=== PATIENT | female | born 1990 | race Caucasian/White ===

== ENCOUNTER 2020-02-26 15:37 | Emergency (ER) | payer BC ==
[~2020-02-26] VITALS: Ht 152.4 cm; Wt 86.2 kg
[~2020-02-26 15:37] MED LIST: ACETAMINOPHEN-1 EAC1 PO; ADIPEX-P37.5 MG; ALDACTONE25 MG PO; BENTYL 20 MG TA20 M1 PO; CEPHALEXIN 500500 M3 PO; HYDROCHLOROTHIA25 M2; IBUPROFEN 800800 M1 PO; MEDROLDOSEPACK PO; NORCO 5-325 TA1 EAC1 PO; NUVARING VAGIN1 EACH; PROTONIX 20 MG20 M1 PO
[2020-02-26 15:54] LABS: URINE BILIRUBIN NEGATIVE (Negative); URINE BLOOD NEGATIVE (Negative); URINE CLARITY CLEAR; URINE COLOR YELLOW; URINE GLUCOSE-RANDOM NEGATIVE (Negative); URINE KETONES NEGATIVE (Negative); URINE LEUKOCYTES-REFLEX NEGATIVE (Negative); URINE NITRITE-REFLEX NEGATIVE (Negative); URINE PROTEIN NEGATIVE (Negative); URINE SPECIFIC GRAVITY 1.025 (1.005-1.030); URINE UROBILINOGEN 0.2 E.U./dl (0.2-1.0)
[2020-02-26 16:05] LABS: ABSOLUTE BASOPHILS 0.1 thou/uL (0.0-0.2); ABSOLUTE LYMPHOCYTES 2.6 thou/uL (0.8-5.3); ABSOLUTE MONOCYTES 0.6 thou/uL (0.0-1.2); BASOPHILS 0.8 %; EOSINOPHILS 0.3 %; HEMATOCRIT 36.2 % (37.0-47.0); HEMOGLOBIN 12.2 gm/dL (12.0-15.0); LYMPHOCYTES 23.1 %; MCH 30.2 pg (26.0-34.0); MCHC 33.6 g/dL (28.0-37.0); MCV 90.1 fL (80.0-100.0); MPV 9.4 fl. (7.2-11.1); NUCLEATED RBCS 0 /100WBC; PLATELET COUNT* 207 thou/uL (150-400); POLYS 70.8 %; RBC 4.02 mil/uL (4.20-5.00); RDW-CV 12.5 % (10.5-14.5); WBC 11.3 thou/uL (4.0-11.0)
[2020-02-26 16:14] LABS: CALCIUM 8.7 mg/dL (8.5-10.1); CREATININE 0.7 mg/dL (0.6-1.3); POTASSIUM 3.8 mmol/L (3.5-5.1)
[2020-02-26 16:18] LABS: TOTAL BILIRUBIN 0.2 mg/dL (<0.1-1.0); TOTAL PROTEIN 6.8 g/dL (6.4-8.2)
[2020-02-26] MEDS ORDERED: CARAFATE1 GM/10 ML PO (18:37)
[2020-02-26] MEDS ORDERED: REGLAN 10 MG TA10 MG PO (18:37)
[2020-02-26 18:48] VITALS: BP 112/59
== END 2020-02-26 18:49 | disposition home or self-care (01) ==
LOC: M.ERS 15:37
PROVIDERS: Nurse Practitioner Family
DX: O26.891 Other specified pregnancy related conditions, first trimester (principal); R10.13 Epigastric pain; O99.351 Diseases of the nervous system complicating pregnancy, first trimester; Z3A.08 8 weeks gestation of pregnancy